=== PATIENT | female | born 1960 | race Caucasian/White ===

== ENCOUNTER 2018-09-24 07:15 | Day surgery (SDC) | payer BC ==
[2018-09-16 18:22] VITALS: BMI 28.8
[2018-09-24] MEDS ORDERED: PROPOFOL 20 ML ONE ×3 (08:27)
[2018-09-24] MEDS ORDERED: LIDOCAINE HCL/PF 2% SDV 5ML VIAL ONE (08:27)
[2018-09-24 09:12] VITALS: TEMP 97.6
[2018-09-24 13:22] VITALS: BP 128/81; PULSE 88
--- NOTE | 2018-09-25 17:17 | PATH ---
Surgical Pathology Report Patient Name: KOBE FULLER [facility]. Rec. #: [id number] /Age/Gender: 1960 (Age: 58) / F Account: [id number] Location: [facility] Taken: 09/24/2018 Received: 09/24/2018 Reported: 09/25/2018 Physicians: Horace Moore M.D. Specimen(s) Received A: DUODENUM B: ANTRUM C: SIGMOID POLYP Clinical History GERD, rule out colon cancer Postoperative diagnosis: Hiatal hernia, colon polyp, gastritis Final Diagnosis A. DUODENUM, BIOPSY: DUODENAL MUCOSA WITHOUT SIGNIFICANT PATHOLOGIC FINDINGS. B. ANTRUM, BIOPSY: GASTRIC ANTRAL MUCOSA WITH MILD CHRONIC GASTRITIS. IMMUNOHISTOCHEMICAL STAIN FOR H. PYLORI IS NEGATIVE. C. SIGMOID, POLYP, BIOPSY: TUBULAR ADENOMA. Electronically Signed Lisa Santillan M.D. Gross Description A. Received in formalin, labeled "duodenum" are 2 glover, irregular portions of soft tissue averaging 0.3 cm. in greatest dimension. The specimens are submitted in toto in one cassette. B. Received in formalin, labeled "antrum" are 2 glover, irregular portions of soft tissue measuring 0.3 and 0.4 cm. in greatest dimension. The specimens are submitted in toto in one cassette. C. Received in formalin, labeled "sigmoid polyp" is a glover, irregular portion of soft tissue measuring 0.2 cm. in greatest dimension. The specimen is submitted in toto in one cassette. /09/24/201809/24/2018
== END 2018-09-24 09:45 | disposition home or self-care (01) ==
LOC: FASU-ENDO 07:15
PROVIDERS: ATTEND Internal Medicine Gastroenterology
PROC: 0DB98ZX Excision of Duodenum, Via Natural or Artificial Opening Endoscopic, Diagnostic (ICD-10-PCS; 2018-09-24)
PROC: 0DB68ZX Excision of Stomach, Via Natural or Artificial Opening Endoscopic, Diagnostic (ICD-10-PCS; 2018-09-24)
PROC: 0DBN8ZX Excision of Sigmoid Colon, Via Natural or Artificial Opening Endoscopic, Diagnostic (ICD-10-PCS; principal; 2018-09-24 08:31)
DX: Z12.11 Encounter for screening for malignant neoplasm of colon (principal); D12.5 Benign neoplasm of sigmoid colon; K29.50 Unspecified chronic gastritis without bleeding; K44.9 Diaphragmatic hernia without obstruction or gangrene; R12 Heartburn
CPT/HCPCS: 88305-TC; 88342-TC

== ENCOUNTER 2022-07-03 10:30 | Emergency (ER) | payer BC ==
[2022-07-03 10:47] VITALS: BP 156/109; PULSE 100; RESP 18; TEMP 98.9; BMI 28.1
[2022-07-03] MEDS ORDERED: ALBUTEROL SO4 2.5/IPRATROPIUM 0.5 INH SOL 3 ML VIAL.NEB. NEB ONE ×2 (10:48→10:50)
[2022-07-03] MEDS ORDERED: ACETAMINOPHEN 325 MG TABLET (FP) PO ONE (10:48)
[2022-07-03] MEDS ORDERED: ACETAMINOPHEN 325 MG TABLET (FP) ONE (10:50)
== END 2022-07-03 12:14 | disposition home or self-care (01) ==
LOC: FER 10:30
PROC: 3E0F7GC Introduction of Other Therapeutic Substance into Respiratory Tract, Via Natural or Artificial Opening (ICD-10-PCS; principal; 2022-07-03)
DX: J06.9 Acute upper respiratory infection, unspecified (principal); R05.1 Acute cough; B97.4 Respiratory syncytial virus as the cause of diseases classified elsewhere
CPT/HCPCS: 0241U-QW; 71045-TC-FY; 99284-25